=== PATIENT | male | born 1995 | race Caucasian/White ===

== ENCOUNTER 2021-08-14 01:58 | Emergency (ER) | payer MEDICAID ==
[~2021-08-14] VITALS: Ht 182.9 cm; Wt 109.1 kg
[~2021-08-14 01:58] MED LIST: ONDA4TAB6 PO
[2021-08-14 02:08] VITALS: BP 139/100
== END 2021-08-14 03:19 | disposition home or self-care (01) ==
LOC: ER 01:59
DX: F10.129 Alcohol abuse with intoxication, unspecified (principal); M25.521 Pain in right elbow; G89.29 Other chronic pain; Z72.89 Other problems related to lifestyle; Z88.5 Allergy status to narcotic agent; Z79.899 Other long term (current) drug therapy; Y90.9 Presence of alcohol in blood, level not specified
CPT/HCPCS: 73080; 99283